=== PATIENT | female | born 1995 | race Caucasian/White ===

== ENCOUNTER 2020-03-01 12:16 | Emergency (ER) | payer OTHER ==
[2020-03-01 12:24] VITALS: BP 124/77
--- NOTE | 2020-03-01 12:34 | ED Physician Documentation ---
History of Present Illness - Stated complaint Stated Complaint: THROAT PX/CHILLS/CHEST PX - Chief complaint Chief Complaint: General - History obtained from History obtained from: Patient - History of Present Illness Timing: How many days ago (2) Pain level max: 0 Pain level now: 0 - Additonal information Additional information: 25-year-old female presents to the emergency department with cough, congestion, sore throat for the past 2 to 3 days. She states that she called the [facility] and was told to come here to be tested for COVID and obtain a work note. Patient does not have significant chest pain, significant shortness of breath. Does not take any medications. Is otherwise healthy. Review of Systems Ten Systems: 10 systems reviewed and negative Constitutional: denies: Fever, Chills Ears: denies: Ear pain Nose: reports: Rhinorrhea / runny nose, Congestion Throat: reports: Sore throat Cardiac: denies: Chest pain / pressure, Palpitations, Calf pain Respiratory: reports: Cough. denies: Dyspnea, Wheezing GI: denies: Abdominal Pain, Nausea, Vomiting, Diarrhea Skin: denies: Rash Musculoskeletal: denies: Neck pain, Back pain Neurologic: denies: Headache PD PAST MEDICAL HISTORY - Past Medical History Past Medical History: No - Past Surgical History Past Surgical History: No - Allergies Allergies/Adverse Reactions: Allergies Allergy/AdvReac Type Severity Reaction Status Date / Time No Known Drug Allergies Allergy Verified 03/01/20 12:20 - Living Situation Living Situation: reports: With family Living Arrangement: reports: At home - Social History Does the pt smoke?: No Does the pt drink ETOH?: Yes Does the pt have substance abuse?: No - Family History Family history: reports: Non contributory PD ED PE NORMAL - Vitals Vital signs reviewed: Yes - General General: Alert and oriented X 3, No acute distress, Well developed/nourished - HEENT HEENT: PERRL, Moist mucous membranes, Other (Tympanostomy tube in the left ear. Normal right ear) - Neck Neck: Supple, no meningeal sign - Cardiac Cardiac: RRR - Respiratory Respiratory: No respiratory distress, Clear bilaterally, Other (Seen. No crackles) - Abdomen Abdomen: Soft, Non tender, Non distended - Derm Derm: Warm and dry, No rash - Extremities Extremities: No edema - Neuro Neuro: Alert and oriented X 3 - Psych Psych: Normal mood, Normal affect Results - Vitals Vitals: Vital Signs - 24 hr 03/01/20 12:20 Temperature 36.5 C Heart Rate 70 Respiratory 16 Rate Blood Pressure 124/77 O2 Saturation 98 Oxygen O2 Source Room air - Labs Labs: Laboratory Tests 03/01/20 12:15 Group A Strep Rapid Negative PD MEDICAL DECISION MAKING - ED course Complexity details: reviewed results, re-evaluated patient, considered differential, d/w patient ED course: Patient is well-appearing, nontoxic. Afebrile. COVID testing was performed. This will return in 1 to 2 days. No indication for imaging at this time. No hypoxia. No respiratory distress. No evidence of pneumonia. We will have her follow-up with her doctor for further care. Patient counseled regarding signs and symptoms for which I believe and urgent re-evaluation would be necessary. Patient with good understanding of and agreement to plan and is comfortable going home at this time This document was made in part using voice recognition software. While efforts are made to proofread this document, sound alike and grammatical errors may occur. Departure - Departure Disposition: 01 Home, Self Care Clinical Impression: Viral URI with cough Condition: Good Instructions: ED Viral Syndrome Follow-Up: Dexter Osorio MD [Primary Care Provider] - Within 1 week Comments: The COVID test will take 1 to 2 days to return. Follow-up with your doctor for further care. Return to the emergency department for significantly worsening symptoms such as severe shortness of breath, chest pain or any other new or worsening symptoms. Drink plenty of fluids and rest. Forms: Activity restrictions Discharge Date/Time: 03/01/20 12:49
[2020-03-01 12:37] LABS: RAPID STREP SCREEN Negative (Negative)
== END 2020-03-01 12:49 | disposition home or self-care (01) ==
LOC: ED 12:16
DX: J06.9 Acute upper respiratory infection, unspecified (principal); Z20.828 Contact with and (suspected) exposure to other viral communicable diseases
CPT/HCPCS: 87070; 87430; 99282; 99283

== ENCOUNTER 2020-11-30 15:27 | Emergency (ER) | payer OTHER ==
[2020-11-30] MEDS ORDERED: SODIUM CHLORIDE 0.9% 1,000 ML IV STA (16:30)
[2020-11-30] MEDS ORDERED: LIDOCAINE TOPICAL 4% 50 ML BOTTLE MM STA (16:31)
[2020-11-30] MEDS ORDERED: BUTALB/ACETAM/CAFF 50/325/40MG TABLET PO STA (16:33)
--- NOTE | 2020-11-30 16:54 | ED Physician Documentation ---
History of Present Illness - Stated complaint Stated Complaint: HEADACHE - Chief complaint Chief Complaint: Neuro - History obtained from History obtained from: Patient - History of Present Illness Timing: Today Pain level max: 10 Pain level now: 6 - Additonal information Additional information: 25-year-old female had a lumbar puncture performed at [facility] 3 days ago for possible papilledema and headaches. She states that today she has had a worsening headache, worse with standing, better with lying flat. Concerned about a post LP headache. She took rizatriptan without relief. No fevers. Has had an occasional chill. No urinary symptoms. No seizure activity. No vision changes. No abdominal pain. No nausea or vomiting. Review of Systems Ten Systems: 10 systems reviewed and negative Constitutional: denies: Fever, Chills GI: denies: Vomiting, Diarrhea Musculoskeletal: denies: Neck pain, Back pain Neurologic: denies: Focal weakness, Numbness, Head injury, LOC PD PAST MEDICAL HISTORY - Past Medical History Past Medical History: Yes Neuro: Migraines - Past Surgical History Past Surgical History: No - Allergies Allergies/Adverse Reactions: Allergies Allergy/AdvReac Type Severity Reaction Status Date / Time No Known Drug Allergies Allergy Verified 11/30/20 15:50 - Social History Does the pt smoke?: No Smoking Status: Never smoker Does the pt drink ETOH?: Yes Does the pt have substance abuse?: No - Immunizations Immunizations are current?: Yes PD ED PE NORMAL - Vitals Vital signs reviewed: Yes - General General: Alert and oriented X 3, No acute distress - HEENT HEENT: PERRL, Moist mucous membranes - Neck Neck: Supple, no meningeal sign - Cardiac Cardiac: RRR - Respiratory Respiratory: No respiratory distress, Clear bilaterally - Abdomen Abdomen: Soft, Non tender, Non distended - Back Back: No spinal TTP, Other (no signs of infection.) - Derm Derm: Warm and dry - Extremities Extremities: No edema - Neuro Neuro: Alert and oriented X 3, shredding machine tender 2-12 intact, No motor deficit, No sensory deficit, Normal speech - Psych Psych: Normal mood, Normal affect Results - Vitals Vitals: Vital Signs - 24 hr 11/30/20 11/30/20 15:47 18:23 Temperature 36.6 C Heart Rate 78 76 Respiratory 16 16 Rate Blood Pressure 135/88 H 136/100 H O2 Saturation 99 97 Oxygen O2 Source Room air - Labs Labs: Laboratory Tests 11/30/20 11/30/20 17:00 17:00 WBC 11.5 H RBC 4.53 Hgb 13.2 Hct 40.9 MCV 90.3 MCH 29.1 MCHC 32.3 RDW 13.4 Plt Count 300 MPV 10.7 Neut # (Auto) 9.1 H Lymph # (Auto) 1.8 [place] # (Auto) 0.4 Eos # (Auto) 0.0 Baso # (Auto) 0.0 Absolute Nucleated RBC 0.00 Nucleated RBC % 0.0 Sodium 136 Potassium 3.6 Chloride 103 Carbon Dioxide 25 Anion Gap 8.0 BUN 11 Creatinine 0.7 Estimated GFR (MDRD) 100 Glucose 97 Calcium 8.9 PD MEDICAL DECISION MAKING - ED course Complexity details: reviewed results, re-evaluated patient, considered differential, d/w patient, d/w client experience consultant ED course: Patient with a post dural puncture headache. Given Fioricet, IV fluids, sphenopalatine ganglion block, transnasal with 4% lidocaine. Headache did improve, but was still present and worse with changing positions. Anesthesia was consulted and a blood patch was performed. Headache down to a 1 out of 10. We will have her follow-up with her doctor for further care. Patient counseled regarding signs and symptoms for which I believe and urgent re-evaluation would be necessary. Patient with good understanding of and agreement to plan and is comfortable going home at this time This document was made in part using voice recognition software. While efforts are made to proofread this document, sound alike and grammatical errors may occur. Departure - Departure Disposition: 01 Home, Self Care Clinical Impression: Post lumbar puncture headache Condition: Good Instructions: ED Headache Post Spinal Tap W Patch Follow-Up: Marissa Walton MD [Primary Care Provider] - Within 1 week Comments: Follow up with your doctor for further care. Return if you worsen. Discharge Date/Time: 11/30/20 18:55
[2020-11-30 17:15] LABS: BASOPHILS % (AUTO) 0.3 %; EOSINOPHILS % (AUTO) 0.2 %; HCT - HEMATOCRIT 40.9 % (37.0-47.0); HGB - HEMOGLOBIN 13.2 g/dL (12.0-16.0); LYMPHOCYTES # (AUTO) 1.8 10^3/uL (1.5-3.5); MEAN CORPUSCULAR HEMOGLOBIN 29.1 pg (27.0-31.0); MEAN CORPUSCULAR HGB CONC 32.3 g/dL (32.0-36.0); MEAN CORPUSCULAR VOLUME 90.3 fL (81.0-99.0); MEAN PLATELET VOLUME 10.7 fL (7.9-10.8); MONOCYTES # (AUTO) 0.4 10^3/uL (0.0-1.0); MONOCYTES % (AUTO) 3.6 %; NEUTROPHILS # (AUTO) 9.1 10^3/uL (1.5-6.6); NEUTROPHILS % (AUTO) 79.5 %; PLT - PLATELET COUNT 300 10^3/uL (130-450); RED BLOOD COUNT 4.53 10^6/uL (4.20-5.40); RED CELL DISTRIBUTION WIDTH 13.4 % (12.0-15.0); WHITE BLOOD COUNT 11.5 x10^3/uL (4.8-10.8)
[2020-11-30 17:22] LABS: CALCIUM 8.9 mg/dL (8.5-10.3); CREATININE 0.7 mg/dL (0.4-1.0); POTASSIUM 3.6 mmol/L (3.5-5.0)
[2020-11-30 18:23] VITALS: BP 136/100
--- NOTE | 2020-11-30 18:26 | CONSULTATION NOTE ---
Consultation Report: Asked to place epidural blood patch on 25yr old female s/p lumbar puncture on 11/27/20. Patient reports symptoms consistent with post dural puncture headache. No other treatments have worked to relieve her headache. Patient was consented for epidural blood patch after risks and benefits discussed. Questions asked and answered. Patient was placed in an upright position and her back was prepped with chlorohexadine. The L4-L5 interspace was identified and 3ml of 1% lidocaine was used for skin localization. A 17 G Tuohy needle was inserted and loss of resistance was found at 6cm. No heme, no paresthesia, no CSF. A total of 20ml of sterile blood was injected into the epidural space and needle removed. The patient tolerated well and reported her headache improved. Rated pain 1/10.
== END 2020-11-30 18:55 | disposition home or self-care (01) ==
LOC: ED 15:27
DX: G97.1 Other reaction to spinal and lumbar puncture (principal); R51.9 Headache, unspecified; Y84.4 Aspiration of fluid as the cause of abnormal reaction of the patient, or of later complication, without mention of misadventure at the time of the procedure
CPT/HCPCS: 36415; 62273; 64505; 80048; 85025; 96360; 99283; 99284; A9270; 64447

== ENCOUNTER 2021-04-21 17:36 | Emergency (ER) | payer OTHER ==
[2021-04-21 17:45] VITALS: BP 137/62
--- NOTE | 2021-04-21 18:13 | ED Physician Documentation ---
PD HPI UPPER EXT INJURY - Stated complaint Stated Complaint: RT HAND INJ - Chief complaint Chief Complaint: Trauma Ext - History obtained from History obtained from: Patient - History of Present Illness Location: Right, Hand Type of injury: Crush Timing - onset: How many hours ago (4) Pain level max: 6 Pain level now: 4 Improved by: Rest Worsened by: Moving, Palpating Recently seen: Not recently seen - Additonal information Additional information: 26-year-old female who presents to the emergency department after crushing her right hand in a door frame today. This occurred about 4 hours prior to arrival. She noted bruising and swelling to the area. Rates the pain was a 4 out of 10. Worse with movement, better with rest. Full range of motion and has been using the hand since the event. Patient is right-handed Review of Systems Constitutional: denies: Fever : denies: Now [facility] PD PAST MEDICAL HISTORY - Past Medical History Past Medical History: Yes Neuro: Migraines - Past Surgical History Past Surgical History: No - Present Medications Home Medications: Ambulatory Orders Medication Instructions Recorded Confirmed Cetirizine [ZyrTEC] 10 mg PO DAILY 04/21/21 04/21/21 Omeprazole Magnesium 20 mg PO DAILY 04/21/21 04/21/21 Oxybutynin Chloride [Ditropan Xl] 10 mg PO DAILY 04/21/21 04/21/21 Prazosin [Minipress] 1 mg PO QPM 04/21/21 04/21/21 Topiramate [Topamax] 100 mg PO BID 04/21/21 04/21/21 - Allergies Allergies/Adverse Reactions: Allergies Allergy/AdvReac Type Severity Reaction Status Date / Time No Known Drug Allergies Allergy Verified 04/21/21 17:45 - Social History Does the pt smoke?: No Smoking Status: Never smoker Does the pt drink ETOH?: Yes Does the pt have substance abuse?: No - Immunizations Immunizations are current?: Yes PD ED PE NORMAL - Vitals Vital signs reviewed: Yes - General General: Alert and oriented X 3, No acute distress - Derm Derm: Warm and dry - Extremities Extremities: Other (Right hand - Contusion and ecchymosis over the fifth metacarpal. Neurovascularly intact. No deformity. Full range of motion. Otherwise normal examination of the hand and wrist.) - Neuro Neuro: Alert and oriented X 3 Results - Vitals Vitals: Vital Signs - 24 hr 04/21/21 17:43 Temperature 36.0 C L Heart Rate 91 Respiratory 16 Rate Blood Pressure 137/62 H O2 Saturation 100 Oxygen O2 Source Room air - Rads (name of study) Right hand x-ray Radiology: Final report received, EMP read contemporaneously, See rad report (No acute abnormality) PD MEDICAL DECISION MAKING - ED course Complexity details: considered differential, d/w patient ED course: Patient with a right hand contusion. No evidence of fracture on x-ray. Using the hand freely. Patient declines a splint. We will have her follow-up with her doctor as needed for further care. Patient counseled regarding signs and symptoms for which I believe and urgent re-evaluation would be necessary. Patient with good understanding of and agreement to plan and is comfortable going home at this time This document was made in part using voice recognition software. While efforts are made to proofread this document, sound alike and grammatical errors may occur. Departure - Departure Disposition: 01 Home, Self Care Clinical Impression: Contusion of hand, right Qualifiers: Encounter type: initial encounter Qualified Code(s): S60.221A - Contusion of right hand, initial encounter Condition: Good Instructions: ED Contusion Hand Follow-Up: ANAM PEGUERO PA-C [Primary Care Provider] - Comments: Your x-ray does not show any fractures today. This should heal on its own. You can use Motrin or Tylenol as needed for pain. Return if you worsen. If you are still having symptoms in 1 week, you should be reevaluated with your doctor. Discharge Date/Time: 04/21/21 18:20
--- NOTE | 2021-04-21 18:28 | XRAY Report ---
PROCEDURE: Hand 3 View RT INDICATIONS: hand vs car door TECHNIQUE: 3 views of the hand(s) acquired. COMPARISON: None FINDINGS: Bones: No fractures or dislocations. No suspicious bony lesions. Soft tissues: No suspicious soft tissue calcifications. Soft tissue swelling adjacent to the base o f the metacarpal. No radiopaque foreign body. IMPRESSION: No fracture. Soft tissue swelling adjacent to the base of the fifth metacarpal. Reviewed by: Presley Villa MD on 04/21/2021 5:27 PM [facility] Approved by: Presley Villa MD on 04/21/2021 5:27 PM [facility] Station ID: [id number]
== END 2021-04-21 18:20 | disposition home or self-care (01) ==
LOC: ED 17:36
DX: S60.221A Contusion of right hand, initial encounter (principal); W23.0XXA Caught, crushed, jammed, or pinched between moving objects, initial encounter
CPT/HCPCS: 99282; 99283

== ENCOUNTER 2023-07-13 08:00 | Outpatient (CLI) | payer OTHER ==
[2023-07-13 19:52] LABS: BACTERIAL VAGINOSIS DNA NEGATIVE (NEGATIVE); CANDIDA GLABRATA DNA NEGATIVE (NEGATIVE); CANDIDA GROUP DNA NEGATIVE (NEGATIVE); CANDIDA KRUSEI DNA NEGATIVE (NEGATIVE); TRICHOMONAS VAGINALIS DNA NEGATIVE (NEGATIVE)
== END 2023-07-13 23:59 | disposition home or self-care (01) ==
LOC: LAB.WC 08:00
PROVIDERS: ATTEND Nurse Practitioner
DX: N89.8 Other specified noninflammatory disorders of vagina (principal)
CPT/HCPCS: 81514